=== PATIENT | female | born 1960 | race Two or more races ===

== ENCOUNTER 2025-04-14 10:33 | Day surgery (SDC) | payer BC, OTHER ==
[2025-04-11 15:13] LABS: Basophils # (auto) 0 10 ^3/uL (0-0.2); Basophils % (auto) 0.6 % (0.0-2.0); Eosinophils # (auto) 0.2 10 ^3/uL (0-0.8); Eosinophils % (auto) 3.3 % (0.0-7.0); Hematocrit 41.1 % (36.0-46.0); Hemoglobin 13.9 g/dL (12.2-16.2); Lymphocytes # (auto) 2.2 10 ^3/uL (0.4-5.4); Lymphocytes % (auto) 34.5 % (10.0-50.0); Mean Corpuscular Hemoglobin 30.7 pg (28.0-32.0); Mean Corpuscular Hgb Conc. 33.7 g/dL (32.0-36.0); Monocytes # (auto) 0.4 10 ^3/uL (0-1.3); Neutrophils # (auto) 3.6 10 ^3/uL (1.6-8.6); Neutrophils % (auto) 55.6 % (37.0-80.0); Nucleated Red Blood Cells % 0.1 %; Platelet Count (auto) 230 10^3/uL (140-450); Red Blood Cells 4.52 10^6/uL (4.0-5.20); Red Cell Distribution Width 14.3 % (11.8-14.3); White Blood Cell 6.5 10^3/uL (4.4-10.8)
[2025-04-11 15:32] LABS: Alanine Aminotransferase 17 U/L (7-40); Albumin 4.6 g/dL (3.2-4.8); Alkaline Phosphatase 83 U/L (46-116); Anion Gap 7 (5-15); Aspartate Aminotransferase 15 U/L (13-40); BUN/Creatinine Ratio 24.7 (10.0-20.0); Bilirubin, Total 0.6 mg/dL (0.2-1.0); Blood Urea Nitrogen 20 mg/dL (9-23); Calcium 10.3 mg/dL (8.7-10.4); Carbon Dioxide 27 mmol/L (20-31); Chloride 110 mmol/L (98-107); Glucose 100 mg/dL (74-106); Sodium 144 mmol/L (136-145); Total Protein 7.4 g/dL (5.7-8.2)
[2025-04-11 15:34] LABS: INR 1.11 (0.9-1.15); Partial Thromboplastin Time 28.6 SEC (24.5-34.5); Prothrombin Time 11.6 sec (9.3-11.8)
[~2025-04-14] VITALS: Ht 157.5 cm; Wt 65.8 kg
[~2025-04-14 10:33] MED LIST: ATOR20TA PO; CHOL100055 PO; DORZ2SOL18 OP; LATA0.008 OP; LOSA-533 PO
[2025-04-14] MEDS: fentaNYL CITRATE 100 MCG/2 ML VL ONE (11:45)
[2025-04-14] MEDS: MIDAZOLAM HCL 2MG/2ML 2ml VIAL (1mg/ml) ONE (11:45)
[2025-04-14 12:16] VITALS: PULSE 68; RESP 12; O2SAT 95
--- NOTE | 2025-04-14 12:18 | DVHNC2 ---
Procedure - PROCEDURE DATE: 04/14/2025 PROCEDURE PERFORMED BY: MATEO MENDIETA MD REFERRING PROVIDER: ALICIA SOFIA MD PROCEDURE PERFORMED: 1. Esophagogastroduodenoscopy with moderate sedation 2. Esophagogastroduodenoscopy with biopsy 3. Colonoscopy with moderate sedation 4. Colonoscopy with hot snare polypectomy 5. Colonoscopy with polypectomy with cold biopsy forceps 6. Colonoscopy with Endoclip placement x2 PRE-PROCEDURE DIAGNOSIS: 1. Diarrhea 2. Hematochezia 3. Nausea and vomiting POSTPROCEDURE DIAGNOSIS: 1. Mild erosive esophagitis 2. Mild erosive gastritis 3. Small hiatal hernia 4. 2 x 1 cm sigmoid polyps pedunculated removed with hot snare polypectomy 5.2 small descending colon polyps removed with cold biopsy polypectomy 6. Severe diverticulosis throughout the colon 7. Small internal and external hemorrhoids INDICATION FOR PROCEDURE: The patient is a 65-year-old female with a recent hospitalization at an outside institution for nausea and vomiting, as well as diarrhea associated with hematochezia. EGD and colonoscopy warranted for evaluation. MEDICATIONS USED: 6 MG OF VERSED AND 75 MCG OF FENTANYL IV WAS GIVEN IN INCREMENTAL DOSES DETAILS OF THE PROCEDURE: Informed consent was obtained after risks, benefits, and alternatives, were discussed at length with the patient. The patient gave consent to the procedure as well as medication used for sedation. The patient was placed in left lateral decubitus position. And Olympus endoscope was inserted into the oropharynx and advanced into the esophagus, then into the stomach, then into the duodenal bulb and duodenum. The duodenal bulb and duodenum were normal. The scope was then withdrawn. The stomach showed mild erosive gastritis in the body and antrum. Biopsies were taken for H pylori and pathology. Retroflexion showed a small hiatal hernia. The scope was then withdrawn. The hiatal hernia measured 2 cm. The Z-line was at 37 cm. The patient had mild erosive esophagitis LA grade A. The scope was then withdrawn and procedure completed the patient tolerated the procedure well. The patient remained in left lateral decubitus position, digital rectal exam showed internal hemorrhoids and moderate external hemorrhoids. An Olympus variable torsion pediatric colonoscope was inserted into the rectum and advanced to the cecum. The cecum was identified by the ileocecal valve and the appendiceal orifice. The scope was then withdrawn. The prep was good with only small amounts of stool. [place] bowel prep score of eight was noted. T the patient had severe diverticulosis throughout the colon. The patient had two diminutive descending colon polyps removed with cold biopsy forceps completely. There were two pedunculated polyps in the sigmoid measuring approximately 1 cm a piece removed with hot snare polypectomy. Two clips were placed for one mucosal defect and one clip was placed for another one. Patient had small internal hemorrhoids. More than 13 minutes withdrawal time was noted. The patient tolerated the procedure well START TIME: 1156 CECUM TIME: 1159 END TIME: 1212 IMPRESSION: 1. Mild erosive esophagitis 2. Mild erosive gastritis 3. Small hiatal hernia 4. Two sigmoid polyps pedunculated removed with hot snare polypectomy 5. Two small descending colon polyps removed with cold biopsy polypectomy 6. Severe diverticulosis throughout the colon 7. Small internal and external hemorrhoids RECOMMENDATIONS: 1. Follow up with me in GI clinic for procedure and pathology results 2. Anti-reflux precautions 3. Avoid aspirin NSAIDs and anticoagulants 4. Patient should be on a proton pump inhibitor daily, 30 minutes before breakfast 5. Repeat colonoscopy in three years unless otherwise indicated by pathology or symptoms 6. High-fiber diet 7. Return to the hospital for bleeding, abdominal pain, fevers chills, chest pain or shortness of breath I would like to thank Dr. Sofia for this referral MATEO MENDIETA MD April 14, 2025 12:18
[2025-04-14 12:50] VITALS: BP 148/85; PULSE 66; RESP 15; O2SAT 94
== END 2025-04-14 12:50 | disposition home or self-care (01) ==
LOC: GI 10:33
PROVIDERS: ATTEND Specialist
DX: K92.1 Melena (principal); D12.4 Benign neoplasm of descending colon; D12.5 Benign neoplasm of sigmoid colon; K29.50 Unspecified chronic gastritis without bleeding; K57.30 Diverticulosis of large intestine without perforation or abscess without bleeding; K64.8 Other hemorrhoids; K64.4 Residual hemorrhoidal skin tags; R19.7 Diarrhea, unspecified; K22.10 Ulcer of esophagus without bleeding; Z98.891 History of uterine scar from previous surgery
CPT/HCPCS: 36415; 43239; 45380; 45385; 80053; 85025; 85610; 85730; 88305; 88312; 88342; J2250; J3010; 99152; 99153